=== PATIENT | male | born 1975 | race Caucasian/White ===

== ENCOUNTER 2021-07-26 11:49 | Emergency (ER) | payer BC, OTHER ==
[~2021-07-26] VITALS: Ht 182.9 cm; Wt 95.3 kg
[~2021-07-26 11:49] MED LIST: IMITREX5 MG NS; PREDNISONE 10 M10 M1 PO
[2021-07-26 13:00] LABS: URINE BILIRUBIN NEGATIVE (Negative); URINE BLOOD NEGATIVE (Negative); URINE CLARITY CLEAR; URINE COLOR YELLOW; URINE GLUCOSE-RANDOM* NEGATIVE (Negative); URINE KETONES NEGATIVE (Negative); URINE LEUKOCYTES-REFLEX NEGATIVE (Negative); URINE NITRITE-REFLEX NEGATIVE (Negative); URINE PROTEIN (DIPSTICK) NEGATIVE (Negative); URINE SPECIFIC GRAVITY 1.025 (1.005-1.035); URINE UROBILINOGEN 0.2 E.U./dl (0.2-1.0)
[2021-07-26] MEDS ORDERED: HYDROCODON-ACE1 EAC7 PO (13:51)
[2021-07-26] MEDS ORDERED: FLEXERIL PO (13:51)
[2021-07-26 14:02] VITALS: BP 132/69
== END 2021-07-26 14:07 | disposition home or self-care (01) ==
LOC: ER 11:49
PROVIDERS: Emergency Medicine
DX: M54.50 Low back pain, unspecified (principal); G43.909 Migraine, unspecified, not intractable, without status migrainosus; F17.210 Nicotine dependence, cigarettes, uncomplicated; Z88.6 Allergy status to analgesic agent; Z79.899 Other long term (current) drug therapy